=== PATIENT | female | born 1995 | race Two or more races ===

== ENCOUNTER → 2021-04-30 | Outpatient (CLI) | payer OTHER | END | disposition home or self-care (01) | LOC: LAB 12:23 | PROVIDERS: ATTEND Physician Assistant | DX: Z20.9 Contact with and (suspected) exposure to unspecified communicable disease (principal) | CPT/HCPCS: 36415; 86706 ==

== ENCOUNTER → 2023-09-02 | Outpatient (CLI) | payer BC ==
[2023-09-02 14:54] LABS: Triglycerides 77 mg/dL (< 150)
[2023-09-02 14:55] LABS: LDL Cholesterol 130 mg/dL (< 100)
[2023-09-02 14:56] LABS: Cholesterol 180 mg/dL (< 200); HDL Cholesterol 44 mg/dL (40-59)
== END | disposition home or self-care (01) ==
LOC: LAB 14:03
PROVIDERS: ATTEND Internal Medicine
DX: E78.41 Elevated Lipoprotein(a) (principal); R68.89 Other general symptoms and signs; E61.2 Magnesium deficiency; R94.6 Abnormal results of thyroid function studies; E79.0 Hyperuricemia without signs of inflammatory arthritis and tophaceous disease; E85.9 Amyloidosis, unspecified; D51.9 Vitamin B12 deficiency anemia, unspecified; R82.90 Unspecified abnormal findings in urine; R82.991 Hypocitraturia; R82.79 Other abnormal findings on microbiological examination of urine
CPT/HCPCS: 36415; 80061

== ENCOUNTER 2024-05-27 09:01 | Day surgery (SDC) | payer BC, MEDICAID ==
[2024-05-26 08:57] LABS: Urine Bacteria None Seen /hpf (None Seen)
[2024-05-26 09:04] LABS: Basophils # (auto) 0 10 ^3/uL (0-0.2); Basophils % (auto) 0.1 % (0.0-2.0); Eosinophils # (auto) 0.4 10 ^3/uL (0-0.8); Hematocrit 39.9 % (36.0-46.0); Hemoglobin 13.5 g/dL (12.2-16.2); Lymphocytes # (auto) 2.8 10 ^3/uL (0.4-5.4); Mean Corpuscular Hemoglobin 29.7 pg (28.0-32.0); Mean Corpuscular Volume 87.3 fL (80.0-100.0); Monocytes # (auto) 0.4 10 ^3/uL (0-1.3); Monocytes % (auto) 5.6 % (0.0-12.0); Neutrophils # (auto) 3.8 10 ^3/uL (1.6-8.6); Neutrophils % (auto) 50.3 % (37.0-80.0); Red Blood Cells 4.56 10^6/uL (4.0-5.20); Red Cell Distribution Width 12.8 % (11.8-14.3); White Blood Cell 7.5 10^3/uL (4.4-10.8)
[2024-05-26 09:14] LABS: INR 0.97 (0.9-1.15); Partial Thromboplastin Time 29.1 SEC (24.5-34.5); Prothrombin Time 10.3 sec (9.3-11.8)
[2024-05-26 09:25] LABS: Urine Blood Negative /uL (Negative); Urine Clarity Clear (Clear); Urine Color Light-Yellow (Yellow); Urine Protein, UAD Negative (Negative); Urine Specific Gravity 1.017 (1.001-1.035); Urine Urobilinogen Normal (Negative); Urine WBC 1 /hpf (0 - 5); Urine pH 5.5 (5.0-9.0)
[2024-05-26 09:54] LABS: Alanine Aminotransferase 22 U/L (7-40); Albumin 4.6 g/dL (3.2-4.8); Alkaline Phosphatase 83 U/L (46-116); Anion Gap 4 (5-15); Aspartate Aminotransferase 13 U/L (13-40); BUN/Creatinine Ratio 15.8 (10.0-20.0); Bilirubin, Total 0.6 mg/dL (0.2-1.0); Blood Urea Nitrogen 12 mg/dL (9-23); Carbon Dioxide 26 mmol/L (20-30); Chloride 105 mmol/L (98-107); Glucose 104 mg/dL (74-106); Potassium 3.9 mmol/L (3.5-5.1); Sodium 135 mmol/L (136-145); Total Protein 7.5 g/dL (5.7-8.2)
[2024-05-26 10:19] LABS: Calcium 9.7 mg/dL (8.5-10.1)
[~2024-05-27] VITALS: Ht 167.6 cm; Wt 86.2 kg
[~2024-05-27 09:01] MED LIST: LUMA42CA PO; TRAZ-228 PO
[2024-05-27] MEDS ORDERED: MIDAZOLAM HCL 2MG/2ML 2ml VIAL (1mg/ml) ONE (10:55)
[2024-05-27] MEDS ORDERED: fentaNYL CITRATE 100 MCG/2 ML VL ONE (10:55)
[2024-05-27] MEDS ORDERED: ONDANSETRON HCL 4 MG/2 ML VIAL IV ONE (11:00)
[2024-05-27] MEDS ORDERED: PROPOFOL 10 MG/ML 20 ML IV ONE (11:24)
[2024-05-27] MEDS ORDERED: ONDANSETRON HCL 4 MG/2 ML VIAL ONE (11:24)
[2024-05-27 11:28] VITALS: TEMP 98.5; O2SAT 100
[2024-05-27 11:56] VITALS: BP 95/55; PULSE 60; RESP 12; O2SAT 100
== END 2024-05-27 12:00 | disposition home or self-care (01) ==
LOC: GI 09:01
PROVIDERS: ATTEND Internal Medicine Gastroenterology
DX: K59.00 Constipation, unspecified (principal); K52.9 Noninfective gastroenteritis and colitis, unspecified; K62.89 Other specified diseases of anus and rectum; K59.89 Other specified functional intestinal disorders; K63.89 Other specified diseases of intestine; R10.9 Unspecified abdominal pain; J45.909 Unspecified asthma, uncomplicated; F31.89 Other bipolar disorder; Z79.899 Other long term (current) drug therapy; Z90.89 Acquired absence of other organs; Z88.4 Allergy status to anesthetic agent; Z88.8 Allergy status to other drugs, medicaments and biological substances
CPT/HCPCS: 36415; 45380; 80053; 81001; 84702; 85025; 85610; 85730; 88305; 88312; J2250; J2405; J2704; J3010; J7030

== ENCOUNTER → 2024-06-14 | Outpatient (CLI) | payer BC ==
[2024-06-16 12:06] LABS: Saccharomyces cerevisiae IgA <20.0 Units (0.0-24.9)
[2024-06-16 14:06] LABS: Cytoplasmic (C-ANCA) <1:20 titer (Neg:<1:20); Perinuclear (P-ANCA) <1:20 titer (Neg:<1:20)
[2024-06-16 18:06] LABS: Antimyeloperoxidase (MPO) Ab <0.2 units (0.0-0.9); Antiproteinase 3 (PR-3) Ab <0.2 units (0.0-0.9)
== END | disposition home or self-care (01) ==
LOC: LAB 10:04
PROVIDERS: ATTEND Internal Medicine Gastroenterology
DX: K51.90 Ulcerative colitis, unspecified, without complications (principal)
CPT/HCPCS: 83520; 86256; 86671